=== PATIENT | male | born 1990 | race Caucasian/White ===

== ENCOUNTER 2022-02-18 10:18 | Emergency (ER) | payer SELFPAY ==
[~2022-02-18] VITALS: Ht 167.6 cm; Wt 82.0 kg
[2022-02-18] MEDS ORDERED: SODIUM CHLORIDE 0.9% 1,000 ML IV ONE (10:30)
[2022-02-18 10:54] LABS: BASOPHILS % 1.3 % (0.0-2.0); EOSINOPHILS % 2.3 % (0.0-5.0); HEMATOCRIT. 38.4 % (42.0-52.0); HEMOGLOBIN. 12.9 g/dL (14.0-18.0); LYMPHOCYTES % 28.1 % (20.0-50.0); MEAN CORPUSCULAR HEMOGLOBIN 27.6 pg (28.0-32.0); MEAN CORPUSCULAR VOLUME 82.1 fL (80.0-94.0); MEAN PLATELET VOLUME 7.7 fl (7.4-10.4); MONOCYTES % 8.1 % (2.0-8.0); NEUTROPHILS % 60.2 % (40.0-76.0); PLATELET 160 x1000/uL (130-400); RED BLOOD CELL COUNT 4.67 mill/uL (4.7-6.1); RED CELL DISTRIBUTION WIDTH 15.7 % (11.6-14.6)
[2022-02-18 11:02] LABS: CHLORIDE 103 mEq/L (98-107)
[2022-02-18 11:17] LABS: ETHANOL BLOOD 496 mg/dL
[2022-02-18 20:37] VITALS: BP 130/81
== END 2022-02-18 20:38 | disposition home or self-care (01) ==
LOC: ER 10:18
DX: T51.0X1A Toxic effect of ethanol, accidental (unintentional), initial encounter (principal); F10.229 Alcohol dependence with intoxication, unspecified; S00.81XA Abrasion of other part of head, initial encounter; G92.8 Other toxic encephalopathy; I10 Essential (primary) hypertension; Y90.8 Blood alcohol level of 240 mg/100 ml or more; W01.198A Fall on same level from slipping, tripping and stumbling with subsequent striking against other object, initial encounter; Y93.89 Activity, other specified; Y92.480 Sidewalk as the place of occurrence of the external cause
CPT/HCPCS: 36415; 70450; 80053; 80307; 80320; 80329; 85025; 99284; J7030; Z7610; G0480